=== PATIENT | male | born 1965 | race African-American/Black ===

== ENCOUNTER 2023-02-15 13:48 | Emergency (ER) | payer MEDICAID, OTHER ==
[~2023-02-15] VITALS: Ht 182.9 cm; Wt 82.0 kg
[2023-02-15 14:16] VITALS: O2SAT 99
[2023-02-15] MEDS ORDERED: TETANUS, DIPHTHERIA, PERTUSSIS VAC/PF 0.5ML (>10YR OLD) IM ONE (15:30)
[2023-02-15] MEDS ORDERED: BACITRACIN ZINC OINT UDPKT TOP ONE (15:30)
[2023-02-15] MEDS ORDERED: LIDOCAINE HCL/PF 1% 10 MG/ML 5ML VIAL INFIL ONE (15:30)
[2023-02-15] MEDS ORDERED: MUPI15CR11 TP (15:54)
[2023-02-15 16:30] VITALS: BP 122/70; PULSE 68; RESP 18; TEMP 98.7
== END 2023-02-15 18:45 | disposition home or self-care (01) ==
LOC: ER 13:48
DX: S61.412A Laceration without foreign body of left hand, initial encounter (principal); X58.XXXA Exposure to other specified factors, initial encounter; Y93.89 Activity, other specified; Y92.89 Other specified places as the place of occurrence of the external cause; Y99.8 Other external cause status
CPT/HCPCS: 90715; 12002; 90471; 99283; J3490; Z7610 ×4

== ENCOUNTER 2023-02-25 11:16 | Emergency (ER) | payer OTHER ==
[~2023-02-25] VITALS: Ht 182.9 cm; Wt 81.6 kg
[~2023-02-25 11:16] MED LIST: MUPI15CR11 TP
[2023-02-25 11:45] VITALS: O2SAT 100
[2023-02-25 13:04] VITALS: BP 119/78; PULSE 98; RESP 16; TEMP 98.8
== END 2023-02-25 13:05 | disposition home or self-care (01) ==
LOC: ER 11:16
DX: S61.411D Laceration without foreign body of right hand, subsequent encounter (principal); I12.9 Hypertensive chronic kidney disease with stage 1 through stage 4 chronic kidney disease, or unspecified chronic kidney disease; N18.9 Chronic kidney disease, unspecified; X58.XXXD Exposure to other specified factors, subsequent encounter
CPT/HCPCS: 99281

== ENCOUNTER 2024-09-22 10:14 | Emergency (ER) | payer OTHER ==
[~2024-09-22] VITALS: Ht 180.3 cm; Wt 79.0 kg
[2024-09-22 10:18] VITALS: O2SAT 100
[2024-09-22 10:26] VITALS: BP 135/56; PULSE 58; RESP 14; TEMP 36.8; O2SAT 99
[2024-09-22] MEDS: KETOROLAC 30MG/ML VIAL IM STA (11:26)
== END 2024-09-22 12:54 | disposition home or self-care (01) ==
LOC: ER 10:14
DX: M25.561 Pain in right knee (principal); M54.50 Low back pain, unspecified; I10 Essential (primary) hypertension; Z98.890 Other specified postprocedural states
CPT/HCPCS: 99285; 72131; 73560; 96372; J1885